=== PATIENT | male | born 2005 | race Caucasian/White ===

== ENCOUNTER 2024-07-23 17:50 | Emergency (ER) | payer BC ==
[~2024-07-23] VITALS: Ht 188 cm; Wt 132.4 kg
[2024-07-23 19:46] LABS: CORONAVIRUS COVID-19 AG NEGATIVE (NEGATIVE); INFLUENZA A AG NEGATIVE (NEGATIVE); INFLUENZA B AG NEGATIVE (NEGATIVE)
[2024-07-23 20:00] VITALS: BP 159/98
== END 2024-07-23 20:00 | disposition home or self-care (01) ==
LOC: ED 17:50
PROVIDERS: Internal Medicine
DX: J02.8 Acute pharyngitis due to other specified organisms (principal); B97.89 Other viral agents as the cause of diseases classified elsewhere
CPT/HCPCS: 36415; 87651; 99283